=== PATIENT | female | born 1995 ===

== ENCOUNTER 2017-03-25 09:30 | Observation (INO) | payer OTHER ==
[2017-03-25 09:38] VITALS: O2SAT 100
[2017-03-25 10:21] LABS: BASO % 0.2 % (0.0-2.0); EOS # 0.1 K/uL (0.0-0.7); EOS % 0.9 % (0.0-4.0); HEMATOCRIT 21.8 % (34.0-47.0); LYMPH # 1.5 K/uL (1.0-4.3); LYMPH % 25.9 % (20.0-40.0); MEAN CELL VOLUME 51.9 fL (81.0-99.0); MEAN CORPUSCULAR HEMOGLOBIN 14.7 pg (27.0-31.0); MEAN CORPUSCULAR HGB CONC 28.3 g/dL (33.0-37.0); MEAN PLATELET VOLUME 8.6 fL (7.2-11.7); MONO # 0.4 K/uL (0.0-0.8); MONO % 6.4 % (0.0-10.0); RED CELL DISTRIBUTION WIDTH 20.8 % (11.5-14.5); WHITE BLOOD COUNT 5.7 K/uL (4.8-10.8)
[2017-03-25 10:24] LABS: CHLORIDE 106 mmol/L (98-107); SODIUM 139 mmol/L (132-148)
[2017-03-25 10:25] LABS: POTASSIUM 4.3 mmol/L (3.6-5.2)
[2017-03-25 10:27] LABS: ALB/GLOB RATIO 1.2 (1.0-2.1); ALKALINE PHOSPHATASE 88 U/L (38-126); AST/SGOT 31 U/L (14-36); BILIRUBIN,TOTAL 0.5 mg/dL (0.2-1.3); BLOOD UREA NITROGEN 11 mg/dL (7-17); CALCIUM 8.1 mg/dl (8.6-10.4); CARBON DIOXIDE 22 mmol/L (22-30); GFR AFRICAN-AMERICAN > 60; GLUCOSE,RANDOM 92 mg/dL (65-105); TOTAL PROTEIN 7.3 g/dL (6.3-8.3)
[2017-03-25 10:28] LABS: ALT/SGPT 21 U/L (9-52)
[2017-03-25 10:29] VITALS: BMI 21.1
--- NOTE | 2017-03-25 10:29 | C.PDOC ---
History Of Present Illness 22 y/o female with PMHx of chronic anemia brought to ED by EMS after having a syncope episode at PMD office (MARIE Lyles) and having low blood pressure [employer]. Patient states not taking iron medication for over 2 year and has been feeling weakness and fatigue. Patient denies Headache, dizziness, weakness or any other complaints at this time. Time Seen by Provider: 03/25/17 09:40 Chief Complaint (Nursing): Syncope History Per: Patient, EMS History/Exam Limitations: no limitations Onset/Duration Of Symptoms: Days Past Medical History Reviewed: Historical Data, Nursing Documentation, Vital Signs Vital Signs: Last Vital Signs Temp 98.0 F 03/25/17 09:32 Pulse 80 03/25/17 09:48 Resp 18 03/25/17 09:48 BP 112/68 03/25/17 09:48 Pulse Ox 100 03/25/17 10:51 - Medical History PMH: Anemia Family History: States: No Known Family Hx - Social History Hx Alcohol Use: No Hx Substance Use: No - Immunization History Hx Tetanus Toxoid Vaccination: No Hx Influenza Vaccination: No Hx Pneumococcal Vaccination: No Review Of Systems Except As Marked, All Systems Reviewed And Found Negative. Constitutional: Negative for: Fever, Chills Cardiovascular: Negative for: Chest Pain Respiratory: Negative for: Shortness of Breath Gastrointestinal: Negative for: Nausea, Vomiting, Diarrhea Neurological: Negative for: Weakness, Headache, Dizziness Physical Exam - Physical Exam Appears: No Acute Distress Skin: Warm, Pale Head: Atraumatic, Normacephalic Eye(s): bilateral: PERRL, Conjunctiva Pale Oral Mucosa: Moist Cardiovascular: Rhythm Regular Respiratory: No Rales, No Rhonchi, No Wheezing Gastrointestinal/Abdominal: No Tenderness, No Guarding, No Rebound Extremity: Normal ROM Neurological/Psych: Oriented x3, Normal Speech ED Course And Treatment - Laboratory Results Result Diagrams: 03/25/17 10:05 03/25/17 10:05 O2 Sat by Pulse Oximetry: 100 (RA) Pulse Ox Interpretation: Normal Disposition Discussed With : Esvin Lopez Counseled Patient/Family Regarding: Studies Performed, Diagnosis - Disposition Disposition: HOSPITALIZED Disposition Time: 10:46 Condition: GUARDED - Clinical Impression Clinical Impression: Anemia - PA / [employer] / Resident Statement / has reviewed & agrees with the documentation as recorded. / has examined the patient and agrees with the treatment plan. - Scribe Statement The provider has reviewed the documentation as recorded by the Scribe Mata Mccormack All medical record entries made by the Anaibe were at my direction and personally dictated by me. I have reviewed the chart and agree that the record accurately reflects my personal performance of the history, physical exam, medical decision making, and the department course for this patient. I have also personally directed, reviewed, and agree with the discharge instructions and disposition. Decision To Admit - Pt Status Changed To: Hospital Disposition Of: Observation - . Bed Request Type: Regular Admitting Physician: Lincoln Marc Patient Diagnosis: Anemia
--- NOTE | 2017-03-25 11:34 | CP.PCM.HP ---
<Tiara Trent - Last Filed: 03/25/17 12:13> History of Present Illness - History of Present Illness History of Present Illness: Medicine Note for Dr. Marc, CC: dizziness, low blood count HPI: 22 year old female with no significant past medical history came in due to a near syncope episode at her primary care doctors office. She was at Dr. Bourgeois office to receive her lab results after a regular checkup. She states that Dr. Lyles told her that she had low HgB and upon standing up she felt dizzy and had to sit down. Dr. Lyles sent her to the ED via ambulance. She denies actually losing consciousness, falling or hitting her head. She explained that she has been told that she was anemic in the past, around 2 years ago and was prescribed iron pills, however, she never had this experience before. She explained how she took the iron pills for one year and then stopped. She denies any hematochezia, hematuria, hematemesis, easy bruising or any history of bleeding disorders in her family. She states that her last menstrual period was on March 11 and was normal flow (3 pads a day) for 3-4 days. She has normal cycles of 1 month and has been menstruating since the age of 14. She admits to dizziness, but denies any symptoms such as chest pain, palpitations, changes in vision, sick contacts, recent travel, nausea, vomiting , headache, or shortness of breath. PMHx: Anemia PSHx: Denied Meds: Denied All: NKDA SHx: Denied any tobacco, alcohol, or illicit drug use. Currently attending [facility]. FHx: Unremarkable PMD: Trupti Present on Admission - Present on Admission Any Indicators Present on Admission: No Past Patient History - Past Social History Smoking Status: Never Smoked - HEMATOLOGICAL/ONCOLOGICAL Hx Anemia: Yes - PSYCHIATRIC Hx Substance Use: No Meds Allergies/Adverse Reactions: Allergies Allergy/AdvReac Type Severity Reaction Status Date / Time No Known Allergies Allergy Verified 03/25/17 10:03 Physical Exam - Constitutional Appears: No Acute Distress - Head Exam Head Exam: NORMAL INSPECTION, NORMOCEPHALIC - ENT Exam ENT Exam: Mucous Membranes Dry Additional comments: conjunctiva pale - Respiratory Exam Respiratory Exam: Clear to Auscultation Bilateral, NORMAL BREATHING PATTERN. absent: Decreased Breath Sounds, Rhonchi, Wheezes - Cardiovascular Exam Cardiovascular Exam: REGULAR RHYTHM, +S1, +S2 - GI/Abdominal Exam GI & Abdominal Exam: Normal Bowel Sounds, Soft. absent: Distended, Tenderness - Extremities Exam Extremities exam: Positive for: normal inspection, pedal pulses present. Negative for: pedal edema, tenderness - Neurological Exam Neurological exam: Alert, Oriented x3 - Skin Skin Exam: Dry, Intact, Normal Color, Warm Results - Vital Signs Recent Vital Signs: Last Vital Signs Temp 98.0 F 03/25/17 09:32 Pulse 84 03/25/17 10:52 Resp 16 03/25/17 10:52 BP 110/66 03/25/17 10:52 Pulse Ox 100 03/25/17 11:23 - Labs Result Diagrams: 03/25/17 10:05 03/25/17 10:05 Assessment & Plan - Assessment and Plan (Free Text) Assessment: 22F with PMHx of Anemia presents to the ED after receiving lab results of low hemoglobin and dizziness. Plan: Anemia * Hemoglobin 6.2 * Blood Consent retrieved- will transfuse 2 units of PRBCs * Dr. Lopez- consulted - help appreciated * F/U CBC post transfusion * F/U Iron panel, TSH, T3, T4 Prophylactic Measures * GI PPX: Protonix 40mg PO daily * DVT PPX: SCDs, VTE contraindicated due to anemia * Regular Diet (vegetarian) DW Twan Bernabe DO, PGY-1 <Lincoln Marc - Last Filed: 03/25/17 14:39> Results - Vital Signs Recent Vital Signs: Last Vital Signs Temp 98.9 F 03/25/17 13:27 Pulse 69 03/25/17 13:27 Resp 20 03/25/17 13:27 BP 110/66 03/25/17 13:27 Pulse Ox 100 03/25/17 13:27 - Labs Result Diagrams: 03/25/17 10:05 03/25/17 10:05 Labs: Laboratory Results - last 24 hr 03/25/17 03/25/17 03/25/17 11:14 12:00 12:00 PT 11.4 INR 1.0 APTT 26 Iron 14 L TIBC 530 H 530 H % Saturation 3 L 3 L Ferritin Thyroxine (T4) TSH 3rd Generation 03/25/17 03/25/17 12:00 12:00 PT INR APTT Iron TIBC % Saturation Ferritin 2.1 Thyroxine (T4) 9.59 TSH 3rd Generation 1.54 Attending/Attestation - Attestation I have personally seen and examined this patient.: Yes I have fully participated in the care of the patient.: Yes I have reviewed all pertinent clinical information: Yes Notes (Text): 03/25/17 14:34 Medical attending: Patient was seen and examined by me, agrees the above note by medical lab specialist. The patient says that she has a regular menstrual., She reports that she does not have abnormal menses. They are regular and they are not heavy. She denies any bleeding per rectum. She explains to us that she's been told a few times in the past that she has anemia. She is a relatively strict vegetarian. Her heart rate and blood pressure are relatively unremarkable considering her hemoglobin is only 6.2. I do think that she's probably had chronic anemia for quite some time now. Will be transfusing 2 units of PRBCs Thank you very much, Lincoln Marc
[2017-03-25] MEDS: Pantoprazole 40 mg EC Tab PO SCH (11:36)
[2017-03-25 12:14] LABS: IRON 14 ug/dL (37-170)
[2017-03-25 12:32] LABS: FT3 4.19 pg/mL (2.77-5.27)
[2017-03-25 12:33] LABS: T4 9.59 ug/dL (5.5-11.0)
[2017-03-25 12:47] LABS: THYROID STIMULATING HORMONE 1.54 mIU/L (0.46-4.68)
--- NOTE | 2017-03-25 16:07 | CP.PCM.CON ---
History of Present Illness - History of Present Illness History of Present Illness: Dr. Lopez consult note, Patient is a 22 year of female who comes to the hospital from her primary care physician office for anemia, fatigue, and dizzness. Patient was there to review her lab results which shows that she is very anemic. She was told to come to [facility] ER where she was admitted and given PRBCs. Her lab work here shows that she is very iron defiecent. She admits to a vegaterian diet and taking iron pills before in the past. She denies having any bleeding or heavy menstrual peroids. Her periods are ever month and last about 3 days. PMHx: Anemia PSHx: Denied Meds: Denied All: NKDA SHx: Denied any tobacco, alcohol, or illicit drug use. [facility] [employer] [employer] also works in a retail shop, eats a strict vegetarian diet. FHx: Unremarkable PMD: Trupti Review of Systems - Review of Systems All systems: reviewed and no additional remarkable complaints except - Constitutional Constitutional: Fatigue, Lethargy. absent: Chills, Fever - EENT Ears: Dizziness - Cardiovascular Cardiovascular: Palpitations - Gastrointestinal Gastrointestinal: absent: Nausea, Vomiting - Genitourinary Genitourinary: absent: Dysuria - Reproductive: Female Reproductive:Female: Menses 1-7 Days, Normal Menses - Menstruation Menstruation: Normal Menses - Neurological Neurological: Dizziness, Weakness - Endocrine Endocrine: Fatigue, Palpitations Past Patient History - Past Medical History & Family History Past Medical History?: Yes - Past Social History Smoking Status: Never Smoked - HEMATOLOGICAL/ONCOLOGICAL Hx Anemia: Yes (chronic) - MUSCULOSKELETAL/RHEUMATOLOGICAL Hx Falls: Yes (syncope at PMD, did not hit head, as per PT) - PSYCHIATRIC Hx Substance Use: No Meds Allergies/Adverse Reactions: Allergies Allergy/AdvReac Type Severity Reaction Status Date / Time No Known Allergies Allergy Verified 03/25/17 10:03 - Medications Medications: Current Medications Ondansetron HCl (Zofran Inj) 4 mg IVP Q6H PRN PRN Reason: Nausea/Vomiting Pantoprazole Sodium (Protonix Ec Tab) 40 mg PO DAILY CYNTHIA Last Admin: 03/25/17 11:36 Dose: 40 mg Pneumococcal Polyvalent Vaccine (Pneumovax 23 Vaccine) 0.5 ml IM .ONCE ONE Stop: 03/28/17 10:01 Physical Exam - Constitutional Appears: Non-toxic, In Acute Distress - Head Exam Head Exam: NORMAL INSPECTION - Eye Exam Eye Exam: Normal appearance Pupil Exam: NORMAL ACCOMODATION - Respiratory Exam Respiratory Exam: Clear to Auscultation Bilateral. absent: Rhonchi, Wheezes - Cardiovascular Exam Cardiovascular Exam: REGULAR RHYTHM, RRR, +S1, +S2. absent: Gallop, Rubs - GI/Abdominal Exam GI & Abdominal Exam: Normal Bowel Sounds, Soft. absent: Tenderness - Extremities Exam Extremities exam: Positive for: normal inspection. Negative for: pedal edema - Back Exam Back exam: NORMAL INSPECTION - Neurological Exam Neurological exam: Oriented x3 - Psychiatric Exam Psychiatric exam: Normal Affect - Skin Skin Exam: Pallor Results - Vital Signs Recent Vital Signs: Last Vital Signs Temp 98.2 F 03/25/17 15:45 Pulse 83 03/25/17 15:45 Resp 18 03/25/17 15:45 BP 104/65 03/25/17 15:45 Pulse Ox 100 03/25/17 13:27 - Labs Result Diagrams: 03/25/17 10:05 03/25/17 10:05 Labs: Laboratory Results - last 24 hr 03/25/17 03/25/17 03/25/17 11:14 12:00 12:00 PT 11.4 INR 1.0 APTT 26 Iron 14 L TIBC 530 H 530 H % Saturation 3 L 3 L Ferritin Thyroxine (T4) TSH 3rd Generation 03/25/17 03/25/17 12:00 12:00 PT INR APTT Iron TIBC % Saturation Ferritin 2.1 Thyroxine (T4) 9.59 TSH 3rd Generation 1.54 Assessment & Plan (1) Anemia Assessment and Plan: Patient Ferritin is 2.1, will give 2 units of PRBCs. Start IV Ferricit after her transfusions. Status: Acute
[2017-03-26 08:00] VITALS: BP 98/63; PULSE 88; RESP 20; TEMP 98.1
[2017-03-26 08:26] LABS: MEAN CELL VOLUME 61.1 fL (81.0-99.0); MEAN CORPUSCULAR HEMOGLOBIN 19.1 pg (27.0-31.0); MEAN CORPUSCULAR HGB CONC 31.3 g/dL (33.0-37.0); MEAN PLATELET VOLUME 8.7 fL (7.2-11.7); RED CELL DISTRIBUTION WIDTH 33.3 % (11.5-14.5); WHITE BLOOD COUNT 5.9 K/uL (4.8-10.8)
[2017-03-26 08:43] LABS: CHLORIDE 105 mmol/L (98-107)
[2017-03-26 08:44] LABS: POTASSIUM 4.3 mmol/L (3.6-5.2); SODIUM 139 mmol/L (132-148)
[2017-03-26 08:46] LABS: ALB/GLOB RATIO 1.2 (1.0-2.1); BILIRUBIN,TOTAL 0.8 mg/dL (0.2-1.3); CARBON DIOXIDE 24 mmol/L (22-30); GFR AFRICAN-AMERICAN > 60; TOTAL PROTEIN 8.1 g/dL (6.3-8.3)
[2017-03-26 08:47] LABS: ALKALINE PHOSPHATASE 86 U/L (38-126); ALT/SGPT 19 U/L (9-52); AST/SGOT 33 U/L (14-36); BLOOD UREA NITROGEN 5 mg/dL (7-17); GLUCOSE,RANDOM 96 mg/dL (65-105)
[2017-03-26] MEDS: Pantoprazole 40 mg EC Tab PO SCH (10:00)
[2017-03-26] MEDS ORDERED: Ferric Sodium Gluconat Complex 62.5 mg/5 ml Vial IVPB SCH (10:00)
--- NOTE | 2017-03-26 14:01 | CP.PCM.DIS ---
<Tiara Trent - Last Filed: 03/26/17 13:58> Provider - Provider Date of Admission: 03/25/17 10:48 Attending physician: Lincoln Marc DO Time Spent in preparation of Discharge (in minutes): 35 Hospital Course - Lab Results Lab Results: Most Recent Lab Values WBC 5.9 K/uL (4.8-10.8) 03/26/17 08:19 RBC 5.40 Mil/uL (3.80-5.20) H 03/26/17 08:19 Hgb 10.3 g/dL (11.0-16.0) L D 03/26/17 08:19 Hct 33.0 % (34.0-47.0) L 03/26/17 08:19 MCV 61.1 fL (81.0-99.0) L D 03/26/17 08:19 MCH 19.1 pg (27.0-31.0) L 03/26/17 08:19 MCHC 31.3 g/dL (33.0-37.0) L 03/26/17 08:19 RDW 33.3 % (11.5-14.5) H 03/26/17 08:19 Plt Count 324 K/uL (130-400) 03/26/17 08:19 MPV 8.7 fL (7.2-11.7) 03/26/17 08:19 Neut % (Auto) 66.6 % (50.0-75.0) 03/25/17 10:05 Lymph % (Auto) 25.9 % (20.0-40.0) 03/25/17 10:05 Coffey % (Auto) 6.4 % (0.0-10.0) 03/25/17 10:05 Eos % (Auto) 0.9 % (0.0-4.0) 03/25/17 10:05 Baso % (Auto) 0.2 % (0.0-2.0) 03/25/17 10:05 Neut # 3.8 K/uL (1.8-7.0) 03/25/17 10:05 Lymph # 1.5 K/uL (1.0-4.3) 03/25/17 10:05 Coffey # 0.4 K/uL (0.0-0.8) 03/25/17 10:05 Eos # 0.1 K/uL (0.0-0.7) 03/25/17 10:05 Baso # 0.0 K/uL (0.0-0.2) 03/25/17 10:05 Differential Comment 03/25/17 10:05 PT 11.4 SECONDS (9.7-12.2) 03/25/17 11:14 INR 1.0 03/25/17 11:14 APTT 26 SECONDS (21-34) 03/25/17 11:14 Sodium 139 mmol/L (132-148) 03/26/17 08:19 Potassium 4.3 mmol/L (3.6-5.2) 03/26/17 08:19 Chloride 105 mmol/L (98-107) 03/26/17 08:19 Carbon Dioxide 24 mmol/L (22-30) 03/26/17 08:19 Anion Gap 14 (10-20) 03/26/17 08:19 BUN 5 mg/dL (7-17) L 03/26/17 08:19 Creatinine 0.6 MG/DL (0.7-1.2) L 03/26/17 08:19 Est GFR ( Amer) > 60 03/26/17 08:19 Est GFR (Non-Af Amer) > 60 03/26/17 08:19 Random Glucose 96 mg/dL (65-105) 03/26/17 08:19 Calcium 9.0 mg/dl (8.6-10.4) 03/26/17 08:19 Iron 14 ug/dL (37-170) L 03/25/17 12:00 TIBC 530 ug/dL (250-450) H 03/25/17 12:00 % Saturation 3 (20-55) L 03/25/17 12:00 Ferritin 2.1 ng/mL 03/25/17 12:00 Total Bilirubin 0.8 mg/dL (0.2-1.3) 03/26/17 08:19 AST 33 U/L (14-36) 03/26/17 08:19 ALT 19 U/L (9-52) 03/26/17 08:19 Alkaline Phosphatase 86 U/L (38-126) 03/26/17 08:19 Total Protein 8.1 g/dL (6.3-8.3) 03/26/17 08:19 Albumin 4.4 g/dL (3.5-5.0) 03/26/17 08:19 Globulin 3.6 gm/dL (2.2-3.9) 03/26/17 08:19 Albumin/Globulin Ratio 1.2 (1.0-2.1) 03/26/17 08:19 Thyroxine (T4) 9.59 ug/dL (5.5-11.0) 03/25/17 12:00 TSH 3rd Generation 1.54 mIU/L (0.46-4.68) 03/25/17 12:00 Blood Type O POSITIVE 03/25/17 10:05 Antibody Screen Negative 03/25/17 10:05 - Hospital Course Hospital Course: Upon admission: CC: dizziness, low blood count HPI: 22 year old female with no significant past medical history came in due to a near syncope episode at her primary care doctors office. She was at Dr. Bourgeois office to receive her lab results after a regular checkup. She states that Dr. Lyles told her that she had low HgB and upon standing up she felt dizzy and had to sit down. Dr. Lyles sent her to the ED via ambulance. She denies actually losing consciousness, falling or hitting her head. She explained that she has been told that she was anemic in the past, around 2 years ago and was prescribed iron pills, however, she never had this experience before. She explained how she took the iron pills for one year and then stopped. She denies any hematochezia, hematuria, hematemesis, easy bruising or any history of bleeding disorders in her family. She states that her last menstrual period was on March 11 and was normal flow (3 pads a day) for 3-4 days. She has normal cycles of 1 month and has been menstruating since the age of 14. She admits to dizziness, but denies any symptoms such as chest pain, palpitations, changes in vision, sick contacts, recent travel, nausea, vomiting , headache, or shortness of breath. PMHx: Anemia PSHx: Denied Meds: Denied All: NKDA SHx: Denied any tobacco, alcohol, or illicit drug use. Currently attending [facility]. FHx: Unremarkable PMD: Trupti Throughout Hospital Course: Patient was admitted for symptomatic chronic anemia. Patient was transfused two units of PRBCs with consent. Patient was evaluated by Last Ironer, Dr. Lopez. The patient has iron deficiency anemia, Dr. Lopez recommended IV iron for 5 days. Patient received one dose here and will receive 4 more days worth. Patient is to follow up with her PMD and Dr. Lopez as outpatient. This is a brief summary of the patient's hospital course. Please review EMR for full record. Discharge Exam - Head Exam Head Exam: NORMAL INSPECTION - Eye Exam Eye Exam: Normal appearance - ENT Exam ENT Exam: Mucous Membranes Moist - Respiratory Exam Respiratory Exam: NORMAL BREATHING PATTERN. absent: Decreased Breath Sounds - Cardiovascular Exam Cardiovascular Exam: REGULAR RHYTHM, RRR, +S1, +S2 - GI/Abdominal Exam GI & Abdominal Exam: Normal Bowel Sounds, Soft. absent: Distended, Tenderness - Extremities Exam Extremities exam: normal inspection, pedal pulses present - Neurological Exam Neurological exam: Alert, Oriented x3 - Skin Skin Exam: Dry, Intact, Normal Color, Warm Discharge Plan - Follow Up Plan Condition: STABLE Disposition: HOME/ ROUTINE Instructions: Iron Rich Diet (DC), Iron Rich Diet (GEN), Iron Deficiency Anemia (DC), Iron Deficiency Anemia (GEN), Anemia (DC), Anemia (GEN) Additional Instructions: Patient is to continue receiving IV iron. This will be arranged with Dr. Lopez the team guide. Patient is to make an appointment to see Dr. Lopez within 1 week. Patient is to follow up with her PMD Dr. Lyles within 1 week. Patient encouraged to eat more foods that are iron rich and to begin taking iron and multivitamins daily. Patient encouraged to return to the ED if her symptoms worsen or return. Referrals: Esvin Lopez MD [Staff Provider] - <Lincoln Marc - Last Filed: 03/26/17 15:41> Provider - Provider Date of Admission: 03/25/17 10:48 Attending physician: Lincoln Marc DO Hospital Course - Lab Results Lab Results: Most Recent Lab Values WBC 5.9 K/uL (4.8-10.8) 03/26/17 08:19 RBC 5.40 Mil/uL (3.80-5.20) H 03/26/17 08:19 Hgb 10.3 g/dL (11.0-16.0) L D 03/26/17 08:19 Hct 33.0 % (34.0-47.0) L 03/26/17 08:19 MCV 61.1 fL (81.0-99.0) L D 03/26/17 08:19 MCH 19.1 pg (27.0-31.0) L 03/26/17 08:19 MCHC 31.3 g/dL (33.0-37.0) L 03/26/17 08:19 RDW 33.3 % (11.5-14.5) H 03/26/17 08:19 Plt Count 324 K/uL (130-400) 03/26/17 08:19 MPV 8.7 fL (7.2-11.7) 03/26/17 08:19 Neut % (Auto) 66.6 % (50.0-75.0) 03/25/17 10:05 Lymph % (Auto) 25.9 % (20.0-40.0) 03/25/17 10:05 Coffey % (Auto) 6.4 % (0.0-10.0) 03/25/17 10:05 Eos % (Auto) 0.9 % (0.0-4.0) 03/25/17 10:05 Baso % (Auto) 0.2 % (0.0-2.0) 03/25/17 10:05 Neut # 3.8 K/uL (1.8-7.0) 03/25/17 10:05 Lymph # 1.5 K/uL (1.0-4.3) 03/25/17 10:05 Coffey # 0.4 K/uL (0.0-0.8) 03/25/17 10:05 Eos # 0.1 K/uL (0.0-0.7) 03/25/17 10:05 Baso # 0.0 K/uL (0.0-0.2) 03/25/17 10:05 Differential Comment 03/25/17 10:05 PT 11.4 SECONDS (9.7-12.2) 03/25/17 11:14 INR 1.0 03/25/17 11:14 APTT 26 SECONDS (21-34) 03/25/17 11:14 Sodium 139 mmol/L (132-148) 03/26/17 08:19 Potassium 4.3 mmol/L (3.6-5.2) 03/26/17 08:19 Chloride 105 mmol/L (98-107) 03/26/17 08:19 Carbon Dioxide 24 mmol/L (22-30) 03/26/17 08:19 Anion Gap 14 (10-20) 03/26/17 08:19 BUN 5 mg/dL (7-17) L 03/26/17 08:19 Creatinine 0.6 MG/DL (0.7-1.2) L 03/26/17 08:19 Est GFR ( Amer) > 60 03/26/17 08:19 Est GFR (Non-Af Amer) > 60 03/26/17 08:19 Random Glucose 96 mg/dL (65-105) 03/26/17 08:19 Calcium 9.0 mg/dl (8.6-10.4) 03/26/17 08:19 Iron 14 ug/dL (37-170) L 03/25/17 12:00 TIBC 530 ug/dL (250-450) H 03/25/17 12:00 % Saturation 3 (20-55) L 03/25/17 12:00 Ferritin 2.1 ng/mL 03/25/17 12:00 Total Bilirubin 0.8 mg/dL (0.2-1.3) 03/26/17 08:19 AST 33 U/L (14-36) 03/26/17 08:19 ALT 19 U/L (9-52) 03/26/17 08:19 Alkaline Phosphatase 86 U/L (38-126) 03/26/17 08:19 Total Protein 8.1 g/dL (6.3-8.3) 03/26/17 08:19 Albumin 4.4 g/dL (3.5-5.0) 03/26/17 08:19 Globulin 3.6 gm/dL (2.2-3.9) 03/26/17 08:19 Albumin/Globulin Ratio 1.2 (1.0-2.1) 03/26/17 08:19 Thyroxine (T4) 9.59 ug/dL (5.5-11.0) 03/25/17 12:00 TSH 3rd Generation 1.54 mIU/L (0.46-4.68) 03/25/17 12:00 Blood Type O POSITIVE 03/25/17 10:05 Antibody Screen Negative 03/25/17 10:05 Attending/Attestation - Attestation I have personally seen and examined this patient.: Yes I have fully participated in the care of the patient.: Yes I have reviewed all pertinent clinical information, including history, physical exam and plan: Yes Notes (Text): 03/26/17 15:31 Medical Attending: Patient was seen and examined by me. Agree with the above note by the resident. The patient was with family members at the time. Patient reports she feels much better, and the family remarked she looked better as well. The patient appears to be eating very small portions of food and the parents explain that she is a very picky eater. The patient recived two units of PRBCs and also IV ferrilicit as well. She will need to supplement her diet much better and also take iron and Vit C thank you Lincoln Marc
--- NOTE | 2017-03-26 20:06 | CARD ---
APPROVED REPORT EKG Measurement Heart [id number] <Conclusion> Normal sinus rhythm Normal ECG
[2017-03-28] MEDS ORDERED: Pneumococcal 23-Valent Vaccine IM ONE (10:00)
== END 2017-03-26 15:24 | disposition home or self-care (01) ==
LOC: C.ER 09:30 → C.9E 10:48 → C.5T 11:48
PROVIDERS: ADMIT Hospitalist; ATTEND Hospitalist
DX: D64.9 Anemia, unspecified (principal); R42 Dizziness and giddiness
CPT/HCPCS: 36415; 36430; 80053; 82728; 83540; 83550; 84436; 84443; 84481; 85025; 85027; 85610; 85730; 86850; 86900; 86920; 93005; 99285; G0378; J2916; P9051